=== PATIENT | female | born 1970 | race Caucasian/White ===

== ENCOUNTER 2019-01-23 08:00 | Outpatient (CLI) | payer MEDICAID | END 2019-01-23 23:59 | disposition home or self-care (01) | LOC: D.MAMMO 08:00 | PROVIDERS: ATTEND Nurse Practitioner Women's Health | DX: Z12.31 Encounter for screening mammogram for malignant neoplasm of breast (principal) ==

== ENCOUNTER 2019-03-08 07:18 | Outpatient (CLI) | payer MEDICAID | END 2019-03-08 23:59 | disposition home or self-care (01) | LOC: D.MAMMO 07:18 | PROVIDERS: ATTEND Nurse Practitioner Women's Health | DX: R92.8 Other abnormal and inconclusive findings on diagnostic imaging of breast (principal) ==

== ENCOUNTER 2019-03-24 12:13 | Outpatient (CLI) | payer MEDICAID | END 2019-03-24 23:59 | disposition home or self-care (01) | LOC: D.MAMMO 12:13 | PROVIDERS: ATTEND Nurse Practitioner Women's Health | DX: R92.8 Other abnormal and inconclusive findings on diagnostic imaging of breast (principal) ==